=== PATIENT | male | born 1940 | race Caucasian/White ===

== ENCOUNTER 2018-04-01 07:00 | Day surgery (SDC) | payer OTHER ==
[~2018-04-01] VITALS: Ht 172.7 cm; Wt 93.4 kg
[~2018-04-01 07:00] MED LIST: LEVO-T75 MCG PO; LISINOPRIL-HCT1 EAC2 PO
== END 2018-04-02 20:02 | disposition home or self-care (01) ==
LOC: CIR.AMB 07:00 → O/R 10:47 → SURG 10:47 → SURH 12:00 → EDSTATUS 12:15 → CIR.AMB 04-02 20:02 → SURG 04-02 20:29 → O/R 04-02 20:29
DX: D12.8 Benign neoplasm of rectum (principal); I11.9 Hypertensive heart disease without heart failure; E03.8 Other specified hypothyroidism